=== PATIENT | male | born 1980 | race Caucasian/White ===

== ENCOUNTER 2016-08-27 14:16 | Emergency (ER) | payer OTHER ==
[2016-08-27] MEDS ORDERED: Zofran 4 MG/2 ML VIAL IV ONE (14:34)
[2016-08-27] MEDS ORDERED: Sodium Chloride 0.9% 1000 ML 1,000 ML IV STA ×2 (14:34→15:46)
[2016-08-27] MEDS ORDERED: TORAdol 30 mg Injection IV ONE (14:34)
[2016-08-27] MEDS ORDERED: Sodium Chloride 0.9% 1000 ML 1,000 ML ONE ×2 (14:38→15:48)
[2016-08-27] MEDS ORDERED: Zofran 4 MG/2 ML VIAL ONE (14:38)
[2016-08-27] MEDS ORDERED: TORAdol 30 mg Injection ONE (14:38)
--- NOTE | 2016-08-27 14:40 | ERPHSYRPT ---
- History of Present Illness Time Seen by Provider: 08/27/16 14:32 Historian: patient Exam Limitations: no limitations Patient Subjective Stated Complaint: PT REPORTS ALL OVER LOW ABD PAIN RADIATING AROUND SIDES BEGINNING AT MIDNIGHT-STATES HE HAS VOMITED ET HAD DIARRHEA TO MANY TIMES TO COUNT-REPORTS HE HAS HX OF KIDNEY STONE ET IT FEELS LIKE THAT Triage Nursing Assessment: PT PALE WARM ET DRY-THRASHING ON THE BED ET KICKING LEGS-RESP NONLABORED-PT JUMPING AWAY ET GUARDING ABD BEFORE NURSE TOUCHES-ABD SOFT-BOWEL SOUNDS PRESENT Physician History: 35-year-old white male with history of PTSD, kidney stones. Arrives with complaint of pain bilateral flanks right greater than left radiating around his abdomen associated with vomiting diarrhea symptoms since 3: 00 this morning. States he has had multiple episodes of vomiting. Past medical history includes PTSD, kidney stones. Past surgical history is negative Timing/Duration: today (3:00 this morning) Activities at Onset: rest Quality: aching, cramping Abdominal Pain Onset Location: flank (bilateral flanks radiating to bilateral lower abdomen) Severity of Pain-Max: moderate Severity of Pain-Current: moderate Modifying Factors: Improves With: vomiting. Worsens With: analgesics, antacids , breathing, coughing, defecating, exercise, lying down, movement, palpation, rest, urinating, position, walking Associated Symptoms: diarrhea, nausea, vomiting, No back, No chest pain, No diaphoresis, No fever/chills, No fatigue, No headache, No heartburn, No loss of appetite, No neck pain, No shortness of breath, No syncope, No testicular pain Previous symptoms: same symptoms as today (similar symptoms with kidney stones in the past) Allergies/Adverse Reactions: hydromorphone HCl [From Dilaudid] Allergy (Mild, Verified 08/27/16 14:30) Skin Irritation ITCHING, HIVES, ET REDNESS Home Medications: Quetiapine Fumarate [Seroquel] 75 mg PO DAILY 04/14/13 [History] Hx Tetanus, Diphtheria Vaccination/Date Given: No Hx Influenza Vaccination/Date Given: No Hx Pneumococcal Vaccination/Date Given: No Immunizations Up to Date: Yes - Review of Systems Constitutional: No Fever, No Chills Eyes: No Symptoms Ears, Nose, & Throat: No Symptoms Respiratory: No Cough, No Dyspnea Cardiac: No Chest Pain, No Edema, No Syncope Abdominal/Gastrointestinal: Abdominal Pain (bilateral lower abdomen pain) Genitourinary Symptoms: Flank Pain (bilateral flank pain right greater than left ), No Dysuria, No Frequency, No Hematuria, No Hesitancy, No Incontinence, No Urgency, No Urinary Retention, No Testicle Pain, No Penile Discharge - Past Medical History Pertinent Past Medical History: Yes Neurological History: No Pertinent History ENT History: No Pertinent History Cardiac History: No Pertinent History Respiratory History: No Pertinent History Endocrine Medical History: No Pertinent History Musculoskeletal History: No Pertinent History GI Medical History: No Pertinent History History: Other Psycho-Social History: Other Male Reproductive Disorders: No Pertinent History Other Medical History: POST TRAUMATIC STRESS DISORDER. FREQUENT KIDNEY STONES - Past Surgical History Past Surgical History: No Neuro Surgical History: No Pertinent History Cardiac: No Pertinent History Gastrointestinal: No Pertinent History Genitourinary: No Pertinent History Musculoskeletal: No Pertinent History Male Surgical History: No Pertinent History - Social History Smoking Status: Current every day smoker How long have you smoked: YRS Exposure to second hand smoke: No Drug Use: marijuana Patient Lives Alone: Yes - Nursing Vital Signs Nursing Vital Signs: Initial Vital Signs Temperature 98.9 F Temperature Source Oral Pulse Rate 69 Respiratory Rate 20 Blood Pressure [Right Arm] 151/97 Pain Intensity 10 - Physical Exam General Appearance: moderate distress Eye Exam: PERRL/EOMI, eyes nml inspection Ears, Nose, Throat Exam: normal ENT inspection, pharynx normal, moist mucous membranes Neck Exam: normal inspection, non-tender, supple, full range of motion Respiratory Exam: normal breath sounds, lungs clear, No respiratory distress Cardiovascular Exam: regular rate/rhythm, normal heart sounds Gastrointestinal/Abdomen Exam: soft, No tenderness, No mass Back Exam: normal range of motion, CVA tenderness (right flank tenderness) Extremity Exam: normal inspection, normal range of motion, pelvis stable Neurologic Exam: alert, oriented x 3, cooperative, normal mood/affect, nml cerebellar function, sensation nml, No motor deficits Skin Exam: normal color, warm, dry SpO2 Interpretation: normal (100%) SpO2: 100 Oxygen Delivery: Room Air - Course Nursing assessment & vital signs reviewed: Yes Ordered Tests: Active Orders 24 hr Category Date Time Status IV Insertion STAT Care 08/27/16 14:34 Active ABDOMEN AND PELVIS W/0 CONTRAS [CT] Stat Exams 08/27/16 14:35 Taken AMYLASE Stat Lab 08/27/16 14:48 Completed CBC W DIFF Stat Lab 08/27/16 14:48 Completed CMP Stat Lab 08/27/16 14:48 Completed LIPASE Stat Lab 08/27/16 14:48 Completed UA W/ MICROSCOPIC Stat Lab 08/27/16 15:52 Completed Urine Triage Profile Stat Lab 08/27/16 15:50 Completed Medication Summary Discontinued Medications Generic Name Dose Route Start Last Admin Trade Name Freq PRN Reason Stop Dose Admin Sodium Chloride 1,000 mls @ 999 mls/hr 08/27/16 14:34 08/27/16 14:42 Sodium Chloride 0.9% 1000 Ml IV 08/27/16 15:34 999 mls/hr .Q1H1M STA Administration Sodium Chloride Confirm 08/27/16 14:38 Sodium Chloride 0.9% 1000 Ml Administered 08/27/16 14:39 Dose 1,000 mls @ ud .ROUTE .STK-MED ONE Sodium Chloride 1,000 mls @ 999 mls/hr 08/27/16 15:46 08/27/16 16:02 Sodium Chloride 0.9% 1000 Ml IV 08/27/16 16:46 999 mls/hr .Q1H1M STA Administration Sodium Chloride Confirm 08/27/16 15:48 Sodium Chloride 0.9% 1000 Ml Administered 08/27/16 15:49 Dose 1,000 mls @ ud .ROUTE .STK-MED ONE Ketorolac Tromethamine 30 mg 08/27/16 14:34 08/27/16 14:42 Toradol 30 Mg Injection IV 08/27/16 14:35 30 mg STAT ONE Administration Ketorolac Tromethamine Confirm 08/27/16 14:38 Toradol 30 Mg Injection Administered 08/27/16 14:39 Dose 30 mg .ROUTE .STK-MED ONE Morphine Sulfate 4 mg 08/27/16 15:11 08/27/16 15:16 Morphine Sulfate 4 Mg Inj IV 08/27/16 15:12 4 mg STAT ONE Administration Morphine Sulfate Confirm 08/27/16 15:14 Morphine Sulfate 4 Mg Inj Administered 08/27/16 15:15 Dose 4 mg .ROUTE .STK-MED ONE Morphine Sulfate 4 mg 08/27/16 15:35 08/27/16 15:38 Morphine Sulfate 4 Mg Inj IV 08/27/16 15:36 4 mg STAT ONE Administration Morphine Sulfate Confirm 08/27/16 15:35 Morphine Sulfate 4 Mg Inj Administered 08/27/16 15:36 Dose 4 mg .ROUTE .STK-MED ONE Ondansetron HCl 4 mg 08/27/16 14:34 08/27/16 14:42 Zofran 4 Mg/2 Ml Vial IV 08/27/16 14:35 4 mg STAT ONE Administration Ondansetron HCl Confirm 08/27/16 14:38 Zofran 4 Mg/2 Ml Vial Administered 08/27/16 14:39 Dose 4 mg .ROUTE .STK-MED ONE Promethazine HCl 12.5 mg 08/27/16 17:14 Phenergan 25 Mg Inj IV 08/27/16 17:15 STAT ONE Lab/Rad Data: Laboratory Result Diagrams 08/27/16 14:48 08/27/16 14:48 Laboratory Results 08/27/16 08/27/16 08/27/16 Range/Units 15:52 15:50 14:48 WBC (4.0-10.5) K/mm3 RBC (4.1-5.6) M/mm3 Hgb (12.5-18.0) gm/dl Hct (42-50) % MCV (78-100) fl MCH (26-32) pg MCHC (32-36) g/dl RDW (11.5-14.0) % Plt Count (150-450) K/mm3 MPV (6-9.5) fl Gran % (36.0-66.0) % Lymphocytes % (24.0-44.0) % Monocytes % (0.0-12.0) % Eosinophils % (0.00-5.0) % Basophils % (0.0-0.4) % Basophils # (0-0.4) Sodium 139 (136-145) mEq/L Potassium 3.3 L (3.5-5.1) mEq/L Chloride 104 (98-107) mEq/L Carbon Dioxide 22.9 (21-32) mEq/L Anion Gap 15.7 H (5-15) MEQ/L BUN 7 L (9-20) mg/dL Creatinine 1.08 (0.55-1.30) mg/dl Estimated GFR > 60 ML/MIN Glucose 149 H (70-110) MG/DL Calcium 9.9 (8.5-10.1) mg/dL Total Bilirubin 0.50 (0.2-1.0) mg/dL AST 13 L (15-37) U/L ALT 19 (12-78) U/L Alkaline Phosphatase 55 (46-116) U/L Serum Total Protein 8.5 H (6.4-8.2) gm/dL Albumin 4.6 (3.4-5.0) g/dL Amylase 44 (25-115) U/L Lipase 77 (73-393) U/L Ur Collection Type CCMS Urine Color YELLOW (YELLOW) Urine Appearance SLIGHTLY CLOUDY (CLEAR) Urine pH 9.0 (5-6) Ur Specific [place] 2.020 (1.005-1.025) Urine Protein 100 (Negative) Urine Glucose (UA) NEGATIVE (NEGATIVE) mg/dL Urine Ketones NEGATIVE (NEGATIVE) Urine Nitrite NEGATIVE (NEGATIVE) Urine Bilirubin NEGATIVE (NEGATIVE) Urine Urobilinogen 0.2 (0-1) mg/dL Urine WBC (Auto) NEGATIVE (NEGATIVE) Urine RBC (Auto) NEGATIVE (0-5) Jim/ul Urine Opiates Level POS. (NEGATIVE) Ur Methadone NEG. (NEGATIVE) Urine Barbiturates NEG. (NEGATIVE) Ur Phencyclidine (PCP) NEG. (NEGATIVE) Urine Amphetamine NEG. (NEGATIVE) U Benzodiazepine Level NEG. (NEGATIVE) Urine Cocaine NEG. (NEGATIVE) Urine Marijuana (THC) POS. (NEGATIVE) Specimen Received 1550 08/27/16 08/27/16 Range/Units 14:48 WBC 8.4 (4.0-10.5) K/mm3 RBC 4.97 (4.1-5.6) M/mm3 Hgb 14.7 (12.5-18.0) gm/dl Hct 42.4 (42-50) % MCV 85.3 (78-100) fl MCH 29.6 (26-32) pg MCHC 34.7 (32-36) g/dl RDW 13.1 (11.5-14.0) % Plt Count 246 (150-450) K/mm3 MPV 11.0 H (6-9.5) fl Gran % 86.7 H (36.0-66.0) % Lymphocytes % 9.6 L (24.0-44.0) % Monocytes % 3.4 (0.0-12.0) % Eosinophils % 0.1 (0.00-5.0) % Basophils % 0.2 (0.0-0.4) % Basophils # 0.02 (0-0.4) Sodium (136-145) mEq/L Potassium (3.5-5.1) mEq/L Chloride (98-107) mEq/L Carbon Dioxide (21-32) mEq/L Anion Gap (5-15) MEQ/L BUN (9-20) mg/dL Creatinine (0.55-1.30) mg/dl Estimated GFR ML/MIN Glucose (70-110) MG/DL Calcium (8.5-10.1) mg/dL Total Bilirubin (0.2-1.0) mg/dL AST (15-37) U/L ALT (12-78) U/L Alkaline Phosphatase (46-116) U/L Serum Total Protein (6.4-8.2) gm/dL Albumin (3.4-5.0) g/dL Amylase (25-115) U/L Lipase (73-393) U/L Ur Collection Type Urine Color (YELLOW) Urine Appearance (CLEAR) Urine pH (5-6) Ur Specific [place] (1.005-1.025) Urine Protein (Negative) Urine Glucose (UA) (NEGATIVE) mg/dL Urine Ketones (NEGATIVE) Urine Nitrite (NEGATIVE) Urine Bilirubin (NEGATIVE) Urine Urobilinogen (0-1) mg/dL Urine WBC (Auto) (NEGATIVE) Urine RBC (Auto) (0-5) Jim/ul Urine Opiates Level (NEGATIVE) Ur Methadone (NEGATIVE) Urine Barbiturates (NEGATIVE) Ur Phencyclidine (PCP) (NEGATIVE) Urine Amphetamine (NEGATIVE) U Benzodiazepine Level (NEGATIVE) Urine Cocaine (NEGATIVE) Urine Marijuana (THC) (NEGATIVE) Specimen Received - Progress Progress: improved Progress Note: 08/27/16 15:12 35-year-old white male arrives with complaint of bilateral flank pain right worse than left. Patient states he feels like a kidney stone. He has been vomiting states he's had diarrhea. Patient apparently seen by Dr. Nguyen at [facility] about a month ago placed on hydrocodone. He states that this was for the same thing. Will send for patient's visit and radiology records Patient has been given Toradol IV fluids Zofran Will give patient morphine. He does state that he is allergic to hydromorphone however he states he can take morphine. 08/27/16 17:03 Patient's CBC CMP essentially normal Urine was positive for specific gravity of 2 which is markedly elevated as well as a pH of 9. Patient does state that he was vomiting all night long Patient was given 2 L of normal saline given 8 mg of morphine given Zofran 4 mg IV, Patient is now feeling better CT of the abdomen and pelvis impression no acute findings. I've discussed the case with the patient he states he is starting to feel better I did discuss the possible discussion with the [facility] in transfer for persistent nausea and vomiting and dehydration however patient states he does not feel like he needs to be admitted he states he is feeling better and will not consider admission. Patient does state that he got extremely good relief with Phenergan during to previous episodes like this however he states he has this at home and pill form he states it does not work Will go ahead and give Phenergan 12.5 mg IV. And write for Phenergan suppositories for home. Interestingly enough patient's urine drug screen is positive for opiates and marijuana. Patient did however get morphine here in the emergency room. - Departure Time of Disposition: 17:08 Departure Disposition: Home Clinical Impression: Bilateral flank pain Nausea and vomiting Qualifiers: Vomiting type: unspecified Vomiting Intractability: unspecified Qualified Code( s): R11.2 - Nausea with vomiting, unspecified Condition: Fair Critical Care Time: No Referrals: HOSPITAL,'[facility] [Primary Care Provider] - Additional Instructions: Return home. Plenty of fluids clear fluids only 24-48 hours. Phenergan 25 mg one rectally every 4-6 hours as needed for nausea and vomiting # 10. Follow-up with your family doctor (you have a markedly elevated pH and specific gravity of your urine which indicates dehydration this needs to be followed up) Return for acute distress or for severe symptoms. Prescriptions: Promethazine HCl 25 mg Supp [Phenergan 25 mg Supp] 25 mg RC Q4-6HPRN PRN # 10 supp.rect PRN Reason: nausea and vomiting
[2016-08-27 15:03] LABS: BASOPHIL % 0.2 % (0.0-0.4); Eosinophil % 0.1 % (0.00-5.0); Granulocytes % 86.7 % (36.0-66.0); Lymphocytes % 9.6 % (24.0-44.0); Mean Cell Volume 85.3 fl (78-100); Mean Corpuscular Hemoglobin 29.6 pg (26-32); Monocytes % 3.4 % (0.0-12.0); Platelet Count 246 K/mm3 (150-450); Red Blood Count 4.97 M/mm3 (4.1-5.6); Red Cell Distribution Width 13.1 % (11.5-14.0); White Blood Count 8.4 K/mm3 (4.0-10.5)
[2016-08-27 15:11] LABS: ALBUMIN 4.6 g/dL (3.4-5.0); ALKALINE PHOSPHATASE 55 U/L (46-116); ANION GAP 15.7 MEQ/L (5-15); BLOOD UREA NITROGEN 7 mg/dL (9-20); CHLORIDE 104 mEq/L (98-107); Carbon Dioxide 22.9 mEq/L (21-32); Glucose 149 MG/DL (70-110); LIPASE 77 U/L (73-393); Potassium 3.3 mEq/L (3.5-5.1); SGOT/AST 13 U/L (15-37); SGPT/ALT 19 U/L (12-78); SODIUM 139 mEq/L (136-145); Total Protein 8.5 gm/dL (6.4-8.2)
[2016-08-27] MEDS ORDERED: MORPHINE SULFATE 4 MG INJ IV ONE ×2 (15:11→15:35)
[2016-08-27] MEDS ORDERED: MORPHINE SULFATE 4 MG INJ ONE ×2 (15:14→15:35)
[2016-08-27 15:56] LABS: Collection Type CCMS
[2016-08-27 15:57] LABS: COMPLETE URINE MICROSCOPIC? YES
[2016-08-27 15:58] LABS: ADD URINE CULTURE? NO (NO)
[2016-08-27] MEDS ORDERED: Phenergan 25 MG INJ IV ONE (17:14)
[2016-08-27] MEDS ORDERED: Phenergan 25 MG INJ ONE (17:23)
[2016-08-27 17:28] LABS: Bacteria FEW /HPF (NEGATIVE); Epithelial Cells RARE /HPF (FEW); Mucus SLIGHT /HPF (NEGATIVE)
[2016-08-27 17:34] VITALS: BP 116/64; PULSE 70; O2SAT 97
--- NOTE | 2016-08-27 22:55 | XRAY ---
Indication: Right flank pain. Multiple contiguous axial images obtained through the abdomen and pelvis without contrast using renal stone protocol. Comparison: April 14, 2015. Lung bases are clear. Heart is not enlarged. No calculus or evidence for obstructive uropathy in either system. Noncontrasted stomach and bowel loops appear nonobstructed. Normal appendix. No free fluid/air. Remaining liver, gallbladder, pancreas, spleen, adrenal glands, kidneys, ureters, bladder, and aorta appear unremarkable for noncontrast exam. Osseous structures intact. Impression: Again negative CT abdomen/pelvis without contrast exam. Comment: Preliminary interpretation was made by C. No discrepancy. CTDI 14.89
== END 2016-08-27 17:33 | disposition home or self-care (01) ==
LOC: ED 14:16
DX: R11.2 Nausea with vomiting, unspecified (principal); R10.9 Unspecified abdominal pain; R19.7 Diarrhea, unspecified; R10.30 Lower abdominal pain, unspecified; F43.10 Post-traumatic stress disorder, unspecified
CPT/HCPCS: 36000; 36415; 74176; 80053; 80307; 81000; 82150; 83690; 85025; 96360; 96361; 96374; 96375; 96376; 99284; J1885; J2270; J2405; J2550

== ENCOUNTER 2020-03-16 12:58 | Emergency (ER) | payer OTHER ==
[2020-03-16 13:14] VITALS: O2SAT 98
--- NOTE | 2020-03-16 13:34 | ERPHSYRPT ---
- History of Present Illness Time Seen by Provider: 03/16/20 13:20 Historian: patient Exam Limitations: no limitations Patient Subjective Stated Complaint: Pt c/o of left sided chest pain that went to his shoulder, neck and back, pt reports being nauseaous this past week Triage Nursing Assessment: Pt brought self to the ER, vitals wnl, denies pain at this time, pulses normal, skin n/w/d, doesn't appear to be in any distress Physician History: Patient is a 39-year-old male presents to our ED with complaints of left-sided chest pain. Chest pain started today. Pain tends to radiate to his left shoulder neck and back. Patient states he has been experiencing nausea all week. No trauma. No fevers. No vomiting. Symptoms are mild to moderate in intensity. No specific worsening or improving factors. Patient voices no other complaints or concerns at this time. Timing/Duration: today Activities at Onset: none Quality: aching Location: other Chest Pain Radiation: neck, arm, back Severity of Pain-Max: mild Severity of Pain-Current: mild Modifying Factors: Improves With: nothing Associated Symptoms: nausea, No vomiting, No palpitations, No heartburn, No abdominal pain, No shortness of breath, No cough, No hurts to breathe, No diaphoresis, No chills, No fever, No fatigue, No weakness, No swelling/lump in chest, No syncope, No rash, No headache, No dizziness, No edema, No back pain Nitro Today/Relief: no nitro taken today Aspirin Treatment Today: no aspirin today Allergies/Adverse Reactions: hydromorphone HCl [From Dilaudid] Allergy (Mild, Verified 03/16/20 13:15) Skin Irritation ITCHING, HIVES, ET REDNESS Home Medications: Quetiapine Fumarate [Seroquel] 100 mg PO DAILY 04/14/13 [History] Hx Tetanus, Diphtheria Vaccination/Date Given: No Hx Influenza Vaccination/Date Given: No Hx Pneumococcal Vaccination/Date Given: No Travel Risk - International Travel Have you traveled outside of the country in past 3 weeks: No - Coronavirus Screening Are you exhibiting any of the following symptoms?: No Close contact with a COVID-19 positive Pt in past 14-21 Days: No - Review of Systems Constitutional: No Symptoms, No Fever, No Chills Eyes: No Symptoms Ears, Nose, & Throat: No Symptoms Respiratory: No Symptoms, No Cough, No Dyspnea Cardiac: No Symptoms, No Chest Pain, No Edema, No Syncope Abdominal/Gastrointestinal: No Symptoms, No Abdominal Pain, No Nausea, No Vomiting, No Diarrhea Genitourinary Symptoms: No Symptoms, No Dysuria Musculoskeletal: No Symptoms, No Back Pain, No Neck Pain Skin: No Symptoms, No Rash Neurological: No Symptoms, No Dizziness, No Focal Weakness, No Sensory Changes Psychological: No Symptoms Endocrine: No Symptoms Hematologic/Lymphatic: No Symptoms Immunological/Allergic: No Symptoms All Other Systems: Reviewed and Negative - Past Medical History Pertinent Past Medical History: Yes Neurological History: No Pertinent History ENT History: No Pertinent History Cardiac History: No Pertinent History Respiratory History: No Pertinent History Endocrine Medical History: No Pertinent History Musculoskeletal History: No Pertinent History GI Medical History: No Pertinent History History: Other Psycho-Social History: Other Male Reproductive Disorders: No Pertinent History Other Medical History: POST TRAUMATIC STRESS DISORDER. FREQUENT KIDNEY STONES - Past Surgical History Past Surgical History: No Neuro Surgical History: No Pertinent History Cardiac: No Pertinent History Gastrointestinal: No Pertinent History Genitourinary: No Pertinent History Musculoskeletal: No Pertinent History Male Surgical History: No Pertinent History - Social History Smoking Status: Former smoker How long have you smoked: YRS Exposure to second hand smoke: No Drug Use: marijuana Patient Lives Alone: Yes - Nursing Vital Signs Nursing Vital Signs: Initial Vital Signs Temperature 98.6 F 03/16/20 13:02 Pulse Rate 88 03/16/20 13:02 Respiratory Rate 13 03/16/20 13:02 Blood Pressure 131/82 03/16/20 13:02 O2 Sat by Pulse Oximetry 98 03/16/20 13:02 Pain Scale Pain Intensity 0 - Physical Exam General Appearance: no apparent distress, alert Eye Exam: PERRL/EOMI, eyes nml inspection Ears, Nose, Throat Exam: normal ENT inspection, moist mucous membranes Neck Exam: normal inspection, non-tender, supple, full range of motion Respiratory Exam: normal breath sounds, lungs clear, No respiratory distress Cardiovascular Exam: regular rate/rhythm, normal heart sounds Gastrointestinal/Abdomen Exam: soft, No tenderness, No mass Back Exam: normal inspection, No CVA tenderness, No vertebral tenderness Extremity Exam: normal inspection, normal range of motion Neurologic Exam: alert, oriented x 3, cooperative, normal mood/affect, sensation nml, No motor deficits Skin Exam: normal color, warm, dry SpO2 Interpretation: normal SpO2: 98 O2 Delivery: Room Air - Course Nursing assessment & vital signs reviewed: Yes EKG Interpreted by Me: RATE (84), Sinus Rhythm, NORMAL AXIS, NORMAL INTERVALS - Radiology Exams Chest X-ray Interpretation: Teleradiologist Report (Lung granuloma otherwise negative chest x-ray.) Ordered Tests: Active Orders 24 hr Category Date Time Status Immigration Paralegal STAT Care 03/16/20 13:12 Active EKG-ER Only STAT Care 03/16/20 13:11 Active IV Insertion STAT Care 03/16/20 13:11 Active Pulse Oximetry (ED) STAT Care 03/16/20 13:11 Active CHEST 1 VIEW (PORTABLE) Stat Exams 03/16/20 13:12 Completed CBC W DIFF Stat Lab 03/16/20 13:11 Completed CMP Stat Lab 03/16/20 13:30 Completed D-DIMER QUANTITATIVE Stat Lab 03/16/20 13:30 Completed MAGNESIUM Stat Lab 03/16/20 13:30 Completed TROPONIN Q3H Lab 03/16/20 13:30 Completed TROPONIN Q3H Lab 03/16/20 16:15 Ordered TROPONIN Q3H Lab 03/16/20 19:15 Ordered TROPONIN Q3H Lab 03/16/20 22:15 Ordered TROPONIN Q3H Lab 03/17/20 01:15 Ordered UA W/RFX UR CULTURE Stat Lab 03/16/20 13:48 Completed Urine Triage Profile Stat Lab 03/16/20 13:48 Completed Lab/Rad Data: Laboratory Result Diagrams 03/16/20 13:11 03/16/20 13:30 Laboratory Results 03/16/20 03/16/20 03/16/20 Range/Units 13:48 13:48 13:30 WBC (4.0-10.5) K/mm3 RBC (4.1-5.6) M/mm3 Hgb (12.5-18.0) gm/dl Hct (42-50) % MCV (78-100) fl MCH (26-32) pg MCHC (32-36) g/dl RDW (11.5-14.0) % Plt Count (150-450) K/mm3 MPV (7.5-11.0) fl Gran % (36.0-66.0) % Eos # (Auto) (0-0.5) Absolute Lymphs (auto) (1.0-4.6) Absolute Monos (auto) (0.0-1.3) Lymphocytes % (24.0-44.0) % Monocytes % (0.0-12.0) % Eosinophils % (0.00-5.0) % Basophils % (0.0-0.4) % Absolute Granulocytes (1.4-6.9) Basophils # (0-0.4) D-Dimer (215-500) ng/mL Sodium (137-145) mmol/L Potassium (3.5-5.1) mmol/L Chloride (98-107) mmol/L Carbon Dioxide (22-30) mmol/L Anion Gap (5-15) MEQ/L BUN (9-20) mg/dL Creatinine (0.66-1.25) mg/dL Estimated GFR ML/MIN Glucose (74-106) mg/dL Calcium (8.4-10.2) mg/dL Magnesium (1.6-2.3) mg/dL Total Bilirubin (0.2-1.3) mg/dL AST (17-59) U/L ALT (0-50) U/L Alkaline Phosphatase (38-126) U/L Troponin I < 0.012 (0.000-0.034) ng/mL Serum Total Protein (6.3-8.2) g/dL Albumin (3.5-5.0) g/dL Urine Color YELLOW (YELLOW) Urine Appearance CLEAR (CLEAR) Urine pH 5.0 (5-6) Ur Specific [place] 1.021 (1.005-1.025) Urine Protein NEGATIVE (Negative) Urine Ketones NEGATIVE (NEGATIVE) Urine Blood NEGATIVE (0-5) Jim/ul Urine Nitrite NEGATIVE (NEGATIVE) Urine Bilirubin NEGATIVE (NEGATIVE) Urine Urobilinogen NEGATIVE (0-1) mg/dL Ur Leukocyte Esterase NEGATIVE (NEGATIVE) Urine WBC (Auto) NONE (0-5) /HPF Urine RBC (Auto) NONE SEEN (0-2) /HPF U Epithel Cells (Auto) RARE (FEW) /HPF Urine Bacteria (Auto) NONE SEEN (NEGATIVE) /HPF Urine Mucus (Auto) SLIGHT (NEGATIVE) /HPF Urine Culture Reflexed NO (NO) Urine Glucose NEGATIVE (NEGATIVE) mg/dL Urine Opiates Level NEGATIVE (NEGATIVE) Ur Methadone NEGATIVE (NEGATIVE) Urine Barbiturates NEGATIVE (NEGATIVE) Ur Phencyclidine (PCP) NEGATIVE (NEGATIVE) Urine Amphetamine NEGATIVE (NEGATIVE) U Benzodiazepine Level NEGATIVE (NEGATIVE) Urine Cocaine NEGATIVE (NEGATIVE) Urine Marijuana (THC) POSITIVE (NEGATIVE) 03/16/20 03/16/20 03/16/20 Range/Units 13:30 13:30 13:11 WBC 6.4 (4.0-10.5) K/mm3 RBC 4.45 (4.1-5.6) M/mm3 Hgb 12.9 (12.5-18.0) gm/dl Hct 38.7 L (42-50) % MCV 87.0 (78-100) fl MCH 29.0 (26-32) pg MCHC 33.3 (32-36) g/dl RDW 13.9 (11.5-14.0) % Plt Count 239 (150-450) K/mm3 MPV 9.9 (7.5-11.0) fl Gran % 62.4 (36.0-66.0) % Eos # (Auto) 0.17 (0-0.5) Absolute Lymphs (auto) 1.50 (1.0-4.6) Absolute Monos (auto) 0.72 (0.0-1.3) Lymphocytes % 23.3 L (24.0-44.0) % Monocytes % 11.2 (0.0-12.0) % Eosinophils % 2.6 (0.00-5.0) % Basophils % 0.5 (0.0-0.4) % Absolute Granulocytes 4.02 (1.4-6.9) Basophils # 0.03 (0-0.4) D-Dimer 371 (215-500) ng/mL Sodium 137 (137-145) mmol/L Potassium 4.1 (3.5-5.1) mmol/L Chloride 106 (98-107) mmol/L Carbon Dioxide 27 (22-30) mmol/L Anion Gap 8.4 (5-15) MEQ/L BUN 15 (9-20) mg/dL Creatinine 0.94 (0.66-1.25) mg/dL Estimated GFR > 60.0 ML/MIN Glucose 104 (74-106) mg/dL Calcium 9.3 (8.4-10.2) mg/dL Magnesium 1.9 (1.6-2.3) mg/dL Total Bilirubin 0.40 (0.2-1.3) mg/dL AST 23 (17-59) U/L ALT 20 (0-50) U/L Alkaline Phosphatase 51 (38-126) U/L Troponin I (0.000-0.034) ng/mL Serum Total Protein 7.4 (6.3-8.2) g/dL Albumin 4.3 (3.5-5.0) g/dL Urine Color (YELLOW) Urine Appearance (CLEAR) Urine pH (5-6) Ur Specific [place] (1.005-1.025) Urine Protein (Negative) Urine Ketones (NEGATIVE) Urine Blood (0-5) Jim/ul Urine Nitrite (NEGATIVE) Urine Bilirubin (NEGATIVE) Urine Urobilinogen (0-1) mg/dL Ur Leukocyte Esterase (NEGATIVE) Urine WBC (Auto) (0-5) /HPF Urine RBC (Auto) (0-2) /HPF U Epithel Cells (Auto) (FEW) /HPF Urine Bacteria (Auto) (NEGATIVE) /HPF Urine Mucus (Auto) (NEGATIVE) /HPF Urine Culture Reflexed (NO) Urine Glucose (NEGATIVE) mg/dL Urine Opiates Level (NEGATIVE) Ur Methadone (NEGATIVE) Urine Barbiturates (NEGATIVE) Ur Phencyclidine (PCP) (NEGATIVE) Urine Amphetamine (NEGATIVE) U Benzodiazepine Level (NEGATIVE) Urine Cocaine (NEGATIVE) Urine Marijuana (THC) (NEGATIVE) - Progress Progress: improved Air Movement: good Progress Note: 03/16/20 15:23 Patient absconded just prior to his second troponin. Patient stated he was hungry and wanted to leave. Patient did not wait for his discharge paperwork. Patient had his children in the ED with him. I believe this is part of the reason why he was in a hurry to leave the ED. Patient left AGAINST MEDICAL A DVICE. There was no time for complete discussion of risks of leaving AGAINST MEDICAL ADVICE. Blood Culture(s) Obtained: No Antibiotics given: No Counseled pt/family regarding: lab results, diagnosis - Departure Departure Disposition: AMA (Patient absconded before his second troponin. Patient got up and left stating he was hungry. No discharge paperwork was provided to him.) Clinical Impression: Lung granuloma Condition: Stable Critical Care Time: No Referrals: HOSPITAL,'[facility] [Primary Care Provider] -
[2020-03-16 13:35] LABS: Absolute Neutrophil Ct (ANC) 4.02 (1.4-6.9); BASOPHIL % 0.5 % (0.0-0.4); Basophil (Absolute #) 0.03 (0-0.4); Eosinophil % 2.6 % (0.00-5.0); Eosinophil (Absolute #) 0.17 (0-0.5); Hematocrit 38.7 % (42-50); Hemoglobin 12.9 gm/dl (12.5-18.0); Lymphocytes % 23.3 % (24.0-44.0); Mean Corpuscular Hgb Concent. 33.3 g/dl (32-36); Mean Platelet Volume 9.9 fl (7.5-11.0); Monocyte (Absolute #) 0.72 (0.0-1.3); Monocytes % 11.2 % (0.0-12.0); Neutrophil % 62.4 % (36.0-66.0); Platelet Count 239 K/mm3 (150-450); Red Blood Count 4.45 M/mm3 (4.1-5.6); Red Cell Distribution Width 13.9 % (11.5-14.0); White Blood Count 6.4 K/mm3 (4.0-10.5)
--- NOTE | 2020-03-16 13:36 | XRAY ---
Indication: Chest pain. Comparison: None Portable chest demonstrates normal heart, lungs, and bony thorax with incidental right lung calcified granulomas and old right 9/10 rib fractures.
[2020-03-16 13:48] LABS: ALBUMIN 4.3 g/dL (3.5-5.0); ALKALINE PHOSPHATASE 51 U/L (38-126); ANION GAP 8.4 MEQ/L (5-15); BLOOD UREA NITROGEN 15 mg/dL (9-20); CHLORIDE 106 mmol/L (98-107); Calcium 9.3 mg/dL (8.4-10.2); Carbon Dioxide 27 mmol/L (22-30); Creatinine 1 0.94 mg/dL (0.66-1.25); EST GLOMERULAR FILTRATION RATE > 60.0 ML/MIN; Glucose 104 mg/dL (74-106); MAGNESIUM 1.9 mg/dL (1.6-2.3); Potassium 4.1 mmol/L (3.5-5.1); SGOT/AST 23 U/L (17-59); SGPT/ALT 20 U/L (0-50); SODIUM 137 mmol/L (137-145); Total Protein 7.4 g/dL (6.3-8.2)
[2020-03-16 14:03] LABS: Appearance CLEAR (CLEAR); Bilirubin NEGATIVE (NEGATIVE); Blood NEGATIVE Ery/ul (0-5); Glucose NEGATIVE (NEGATIVE); Ketones NEGATIVE (NEGATIVE); Leukocyte Esterase NEGATIVE (NEGATIVE); Mucus SLIGHT /HPF (NEGATIVE); Nitrite NEGATIVE (NEGATIVE); Protein,Urine Dip NEGATIVE (Negative); Specific Gravity 1.021 (1.005-1.025); Urobilinogen NEGATIVE mg/dL (0-1)
[2020-03-16 14:09] VITALS: BP 130/93; PULSE 77
[2020-03-16 14:09] LABS: Bacteria NONE SEEN /HPF (NEGATIVE); Epithelial Cells RARE /HPF (FEW); RBC NONE SEEN /HPF (0-2)
[2020-03-16 14:15] LABS: Amphetamine,Urine NEGATIVE (NEGATIVE); Barbiturate,Urine NEGATIVE (NEGATIVE); Benzodiazepine,Urine NEGATIVE (NEGATIVE); Cocaine,Urine NEGATIVE (NEGATIVE); Methadone,Urine NEGATIVE (NEGATIVE); Opiate,Urine NEGATIVE (NEGATIVE); PCP,Urine NEGATIVE (NEGATIVE); THC,Urine POSITIVE (NEGATIVE)
== END 2020-03-16 15:28 | disposition left against medical advice (07) ==
LOC: ED 12:58
DX: J84.10 Pulmonary fibrosis, unspecified (principal)
CPT/HCPCS: 36000; 36415; 71045; 80053; 80307; 81001; 83735; 84484; 85025; 85379; 93005; 93041; 94760; 99284

== ENCOUNTER 2024-11-30 21:12 | Emergency (ER) | payer OTHER ==
--- NOTE | 2024-11-30 21:32 | ERPHSYRPT ---
- History of Present Illness Time Seen by Provider: 11/30/24 21:15 Historian: patient Exam Limitations: no limitations Physician History: 44-year-old male presents to the emergency room with abdominal cramping patient reports he has been feeling nauseous denies any fevers denies any chest pain denies any cough or congestion denies any sick contacts denies any urinary symptoms patient denies any recent travel or trauma patient is now in ED for further eval Timing/Duration: day(s) (2) Quality: cramping Abdominal Pain Onset Location: generalized abdomen Pain Radiation: no radiation Severity of Pain-Max: mild Severity of Pain-Current: mild Modifying Factors: Improves With: nothing Associated Symptoms: nausea, No back, No headache, No heartburn Allergies/Adverse Reactions: hydromorphone HCl [From Dilaudid] Allergy (Mild, Verified 03/16/20 13:15) Skin Irritation ITCHING, HIVES, ET REDNESS Home Medications: Quetiapine Fumarate [Seroquel] 150 mg PO DAILY 04/14/13 [History] Hx Tetanus, Diphtheria Vaccination/Date Given: No Hx Influenza Vaccination/Date Given: No Hx Pneumococcal Vaccination/Date Given: No - Review of Systems Constitutional: No Fever, No Chills Eyes: No Symptoms Ears, Nose, & Throat: No Symptoms Respiratory: No Cough, No Dyspnea Cardiac: No Chest Pain, No Edema, No Syncope Abdominal/Gastrointestinal: Abdominal Pain, Nausea, No Vomiting, No Diarrhea Genitourinary Symptoms: No Dysuria Musculoskeletal: No Back Pain, No Neck Pain Skin: No Rash Neurological: No Dizziness, No Focal Weakness, No Sensory Changes Psychological: No Symptoms Endocrine: No Symptoms All Other Systems: Reviewed and Negative - Past Medical History Pertinent Past Medical History: Yes Neurological History: No Pertinent History ENT History: No Pertinent History Cardiac History: No Pertinent History Respiratory History: No Pertinent History Endocrine Medical History: No Pertinent History Musculoskeletal History: No Pertinent History GI Medical History: No Pertinent History History: Other Psycho-Social History: Other Male Reproductive Disorders: No Pertinent History Other Medical History: POST TRAUMATIC STRESS DISORDER. FREQUENT KIDNEY STONES - Past Surgical History Past Surgical History: No Neuro Surgical History: No Pertinent History Cardiac: No Pertinent History Gastrointestinal: No Pertinent History Genitourinary: No Pertinent History Musculoskeletal: No Pertinent History Male Surgical History: No Pertinent History - Social History Smoking Status: Former smoker How long have you smoked: YRS Exposure to second hand smoke: No Drug Use: marijuana Patient Lives Alone: Yes - Nursing Vital Signs Nursing Vital Signs: Initial Vital Signs Blood Pressure 143/103 11/30/24 21:16 Pain Scale Pain Intensity 6 - Physical Exam General Appearance: no apparent distress, alert Eye Exam: PERRL/EOMI, eyes nml inspection Ears, Nose, Throat Exam: normal ENT inspection, pharynx normal, moist mucous membranes Neck Exam: normal inspection, non-tender, supple, full range of motion Respiratory Exam: normal breath sounds, lungs clear, No respiratory distress Cardiovascular Exam: regular rate/rhythm, normal heart sounds Gastrointestinal/Abdomen Exam: soft, tenderness (Generalized no rebound or guarding), No mass Back Exam: normal inspection, normal range of motion, No CVA tenderness, No vertebral tenderness Extremity Exam: normal inspection, normal range of motion, pelvis stable Neurologic Exam: alert, oriented x 3, cooperative, normal mood/affect, nml cerebellar function, sensation nml, No motor deficits Skin Exam: normal color, warm, dry - Course Nursing assessment & vital signs reviewed: Yes Ordered Tests: Active Orders 24 hr Category Date Time Status IV Insertion STAT Care 11/30/24 21:27 Active CBC W DIFF Stat Lab 11/30/24 21:36 Completed CMP Stat Lab 11/30/24 21:36 Completed CULTURE,URINE Stat Lab 11/30/24 23:30 Received LIPASE Stat Lab 11/30/24 21:36 Completed Lactic Acid Stat Lab 11/30/24 21:45 Completed Lactic Acid Stat Lab 11/30/24 23:48 Completed UA W/RFX UR CULTURE Stat Lab 11/30/24 23:30 Completed Medication Summary Discontinued Medications Generic Name Dose Route Start Last Admin Trade Name Freq PRN Reason Stop Dose Admin Sodium Chloride 1,000 mls @ 999 mls/hr 11/30/24 21:27 11/30/24 22:16 Sodium Chloride 0.9% 1000 Ml IV 11/30/24 22:27 999 mls/hr .Q1H1M STA Administration Promethazine HCl 12.5 mg/ 100.5 mls @ 201 mls/hr 11/30/24 21:29 11/30/24 21:42 Sodium Chloride IV 11/30/24 21:58 201 mls/hr NOW ONE 201 mls/hr Administration Sodium Chloride Confirm 11/30/24 21:35 Sodium Chloride 0.9% Administered 11/30/24 21:36 Dose 100 mls @ ud .ROUTE .STK-MED ONE Sodium Chloride Confirm 11/30/24 21:35 Sodium Chloride 0.9% 1000 Ml Administered 11/30/24 21:36 Dose 1,000 mls @ ud .ROUTE .STK-MED ONE Sodium Chloride Confirm 11/30/24 23:08 Sodium Chloride 0.9% 1000 Ml Administered 11/30/24 23:09 Dose 1,000 mls @ ud .ROUTE .STK-MED ONE Morphine Sulfate 4 mg 11/30/24 21:27 11/30/24 21:41 Morphine Sulfate 4 Mg/Ml Injection IV 11/30/24 21:28 4 mg STAT ONE Administration Morphine Sulfate Confirm 11/30/24 21:35 Morphine Sulfate 4 Mg/Ml Injection Administered 11/30/24 21:36 Dose 4 mg .ROUTE .STK-MED ONE Morphine Sulfate 4 mg 11/30/24 21:59 11/30/24 22:04 Morphine Sulfate 4 Mg/Ml Injection IV 11/30/24 22:00 4 mg STAT ONE Administration Morphine Sulfate Confirm 11/30/24 22:03 Morphine Sulfate 4 Mg/Ml Injection Administered 11/30/24 22:04 Dose 4 mg .ROUTE .STK-MED ONE Morphine Sulfate 2 mg 11/30/24 23:00 11/30/24 23:12 Morphine Sulfate 2 Mg/Ml Inj IV 11/30/24 23:01 2 mg STAT ONE Administration Morphine Sulfate Confirm 11/30/24 23:08 Morphine Sulfate 2 Mg/Ml Inj Administered 11/30/24 23:09 Dose 2 mg .ROUTE .STK-MED ONE Promethazine HCl Confirm 11/30/24 21:35 Promethazine Hcl 25 Mg/Ml Vial Administered 11/30/24 21:36 Dose 25 mg .ROUTE .STK-MED ONE Lab/Rad Data: Laboratory Result Diagrams 11/30/24 21:36 11/30/24 21:36 Laboratory Results 11/30/24 11/30/24 11/30/24 Range/Units 23:48 23:30 21:45 WBC (4.23-9.07) x10^3/uL RBC (4.63-6.08) x10^6/uL Hgb (13.7-17.5) g/dL Hct (40.1-51.0) % MCV (79.0-92.2) fL MCH (25.7-32.2) pg MCHC (32.3-36.5) g/dL RDW (11.6-14.4) % Plt Count (163-337) x10^3/uL MPV (9.4-12.4) fL Gran % (34.0-67.9) % Immature Gran % (Auto) (0.001-0.429) % Nucleat RBC Rel Count (0.00-0.2) % Eos # (Auto) (0.04-0.54) x10^3/uL Immature Gran # (Auto) (0.001-0.031) x10^3u/L Absolute Lymphs (auto) (1.32-3.57) x10^3/uL Absolute Monos (auto) (0.30-0.82) x10^3/uL Absolute Nucleated RBC (0.00-0.012) x10^3u/L Lymphocytes % (21.8-53.1) % Monocytes % (5.3-12.2) % Eosinophils % (0.8-7.0) % Basophils % (0.2-1.2) % Absolute Granulocytes (1.78-5.38) x10^3/uL Basophils # (0.01-0.08) x10^3/uL Sodium (135-145) mmol/L Potassium (3.5-5.1) mmol/L Chloride (98-107) mmol/L Carbon Dioxide (22-30) mmol/L Anion Gap (5-15) MEQ/L BUN (9-20) mg/dL Creatinine (0.66-1.25) mg/dL Estimated GFR ML/MIN Glucose (74-106) mg/dL Lactic Acid 1.6 2.8 H (0.4-2.0) Calcium (8.4-10.2) mg/dL Total Bilirubin (0.2-1.3) mg/dL AST (17-59) U/L ALT (0-50) U/L Alkaline Phosphatase (38-126) U/L Serum Total Protein (6.3-8.2) g/dL Albumin (3.5-5.0) g/dL Lipase (23-300) U/L Urine Color Yellow (Yellow) Urine Appearance Cloudy A (Clear) Urine pH 8.5 A (4.6-8.0) Ur Specific [place] 1.025 (1.005-1.030) Urine Protein 30 (Negative) Urine Glucose (UA) Negative (Negative) mg/dL Urine Ketones 80 A (Negative) Urine Blood Negative (Negative) Urine Nitrite Negative (Negative) Urine Bilirubin Negative (Negative) Urine Urobilinogen 1.0 A (0.2) mg/dL Ur Leukocyte Esterase Trace A (Negative) U Hyaline Cast (Auto) NONE SEEN (0-2) /LPF Urine Microscopic RBC 0-2 (0-5) /HPF Urine Microscopic WBC 0-2 (0-5) /HPF Ur Epithelial Cells None Seen (None Seen) /HPF Urine Bacteria None Seen (None Seen) /HPF Urine Culture Reflexed YES (NO) 11/30/24 11/30/24 Range/Units 21:36 21:36 WBC 10.6 H (4.23-9.07) x10^3/uL RBC 5.19 (4.63-6.08) x10^6/uL Hgb 15.1 (13.7-17.5) g/dL Hct 44.2 (40.1-51.0) % MCV 85.2 (79.0-92.2) fL MCH 29.1 (25.7-32.2) pg MCHC 34.2 (32.3-36.5) g/dL RDW 13.2 (11.6-14.4) % Plt Count 295 (163-337) x10^3/uL MPV 10.5 (9.4-12.4) fL Gran % 63.0 (34.0-67.9) % Immature Gran % (Auto) 0.4 (0.001-0.429) % Nucleat RBC Rel Count 0.0 (0.00-0.2) % Eos # (Auto) 0.19 (0.04-0.54) x10^3/uL Immature Gran # (Auto) 0.04 H (0.001-0.031) x10^3u/L Absolute Lymphs (auto) 2.64 (1.32-3.57) x10^3/uL Absolute Monos (auto) 0.97 H (0.30-0.82) x10^3/uL Absolute Nucleated RBC 0.00 (0.00-0.012) x10^3u/L Lymphocytes % 24.8 (21.8-53.1) % Monocytes % 9.1 (5.3-12.2) % Eosinophils % 1.8 (0.8-7.0) % Basophils % 0.9 (0.2-1.2) % Absolute Granulocytes 6.70 H (1.78-5.38) x10^3/uL Basophils # 0.10 H (0.01-0.08) x10^3/uL Sodium 141 (135-145) mmol/L Potassium 4.1 (3.5-5.1) mmol/L Chloride 103 (98-107) mmol/L Carbon Dioxide 24 (22-30) mmol/L Anion Gap 18.4 H (5-15) MEQ/L BUN 21 H (9-20) mg/dL Creatinine 0.97 (0.66-1.25) mg/dL Estimated GFR 97.5 ML/MIN Glucose 116 H (74-106) mg/dL Lactic Acid (0.4-2.0) Calcium 10.5 H (8.4-10.2) mg/dL Total Bilirubin 0.90 (0.2-1.3) mg/dL AST 34 (17-59) U/L ALT 31 (0-50) U/L Alkaline Phosphatase 60 (38-126) U/L Serum Total Protein 9.4 H (6.3-8.2) g/dL Albumin 5.3 H (3.5-5.0) g/dL Lipase 63 (23-300) U/L Urine Color (Yellow) Urine Appearance (Clear) Urine pH (4.6-8.0) Ur Specific [place] (1.005-1.030) Urine Protein (Negative) Urine Glucose (UA) (Negative) mg/dL Urine Ketones (Negative) Urine Blood (Negative) Urine Nitrite (Negative) Urine Bilirubin (Negative) Urine Urobilinogen (0.2) mg/dL Ur Leukocyte Esterase (Negative) U Hyaline Cast (Auto) (0-2) /LPF Urine Microscopic RBC (0-5) /HPF Urine Microscopic WBC (0-5) /HPF Ur Epithelial Cells (None Seen) /HPF Urine Bacteria (None Seen) /HPF Urine Culture Reflexed (NO) - Progress Progress Note: 12/01/24 00:10 Patient's abdomen soft nontender patient's repeat lactic acid came down from 2.8-1.6 patient is feeling much more improved recommend close return precautions patient is afebrile white count is 10.6 no evidence of renal failure noted patient will be discharged at this time 12/01/24 00:10 12/01/24 00:10 - Departure Departure Disposition: Home Clinical Impression: Abdominal pain Qualifiers: Abdominal location: unspecified location Qualified Code(s): R10.9 - Unspecified abdominal pain Condition: Stable Critical Care Time: No Referrals: [facility] [Primary Care Provider, UNKNOWN] - Follow up/PCP as directed Instructions: Abdominal pain, Severe Abdominal Pain, Adult (DC)
[2024-11-30] MEDS ORDERED: MORPHINE SULFATE 4 MG INJ ONE ×2 (21:35→22:03)
[2024-11-30] MEDS ORDERED: Phenergan 25 MG INJ ONE (21:35)
[2024-11-30 21:39] LABS: BASOPHIL % 0.9 % (0.2-1.2); Basophil (Absolute #) 0.10 x10^3/uL (0.01-0.08); Eosinophil (Absolute #) 0.19 x10^3/uL (0.04-0.54); Hematocrit 44.2 % (40.1-51.0); Hemoglobin 15.1 g/dL (13.7-17.5); IMMATURE GRAN # 0.04 x10^3u/L (0.001-0.031); IMMATURE GRAN % 0.4 % (0.001-0.429); Lymphocyte (Absolute #) 2.64 x10^3/uL (1.32-3.57); Mean Corpuscular Hemoglobin 29.1 pg (25.7-32.2); Mean Corpuscular Hgb Concent. 34.2 g/dL (32.3-36.5); Monocyte (Absolute #) 0.97 x10^3/uL (0.30-0.82); NUCLEATED RBC # 0.00 x10^3u/L (0.00-0.012); NUCLEATED RBC % 0.0 % (0.00-0.2); Platelet Count 295 x10^3/uL (163-337); Red Blood Count 5.19 x10^6/uL (4.63-6.08); White Blood Count 10.6 x10^3/uL (4.23-9.07)
[2024-11-30] MEDS: MORPHINE SULFATE 4 MG INJ IV ONE ×2 (21:41→22:04)
[2024-11-30] MEDS: Phenergan 25 MG INJ*** 12.5 MG in Sodium Chloride 0.9% 100 ML IV ONE (21:42)
[2024-11-30 21:55] LABS: Calcium 10.5 mg/dL (8.4-10.2); Carbon Dioxide 24.0 mmol/L (22-30); Creatinine 1 0.97 mg/dL (0.66-1.25); EST GLOMERULAR FILTRATION RATE 97.5 ML/MIN; Glucose 116.0 mg/dL (74-106); Potassium 4.1 mmol/L (3.5-5.1); SGOT/AST 34.0 U/L (17-59); SGPT/ALT 31.0 U/L (0-50); Total Protein 9.4 g/dL (6.3-8.2)
[2024-11-30] MEDS ORDERED: MORPHINE SULFATE 2 MG INJ ONE (23:08)
[2024-11-30] MEDS: MORPHINE SULFATE 2 MG INJ IV ONE (23:12)
[2024-11-30 23:22] VITALS: BP 134/105; O2SAT 96
[2024-11-30 23:36] LABS: Glucose, Urine Negative (Negative); Protein,Urine Dip 30 (Negative); RBC 0-2 /HPF (0-5); WBC 0-2 /HPF (0-5)
[2024-12-01 00:06] VITALS: PULSE 88
== END 2024-12-01 00:29 | disposition home or self-care (01) ==
LOC: ED 21:12
DX: R10.9 Unspecified abdominal pain (principal); R11.0 Nausea; Z79.899 Other long term (current) drug therapy